=== PATIENT | male | born 1990 | race African-American/Black ===

== ENCOUNTER 2022-06-16 20:26 | Emergency (ER) | payer OTHER ==
[2022-06-16 21:02] VITALS: BP 134/84; PULSE 88; RESP 19; TEMP 97.8; BMI 45.3
[2022-06-16] MEDS ORDERED: IBUPROFEN 600 MG TABLET (FP) PO ONE ×2 (22:40→23:03)
== END 2022-06-17 00:18 | disposition home or self-care (01) ==
LOC: JERFT 20:26 → JER 20:26
PROC: 2W3SX1Z Immobilization of Right Foot using Splint (ICD-10-PCS; principal; 2022-06-16)
DX: S92.354A Nondisplaced fracture of fifth metatarsal bone, right foot, initial encounter for closed fracture (principal); W18.49XA Other slipping, tripping and stumbling without falling, initial encounter
CPT/HCPCS: 73630-TC-RT-FY; 99283-25